=== PATIENT | male | born 1995 | race Caucasian/White ===

== ENCOUNTER 2022-12-06 18:15 | Emergency (ER) | payer SELFPAY ==
[~2022-12-06] VITALS: Ht 190.5 cm; Wt 90.7 kg
[~2022-12-06 18:15] MED LIST: ADDERALL 10 MG10 MG
[2022-12-06] MEDS ORDERED: DOXYCYCLINE HYCLATE TABLET 100 MG TAB PO ONE (18:30)
[2022-12-06] MEDS ORDERED: DOXYCYCLINE HY100 MG PO (18:57)
== END 2022-12-06 19:01 | disposition home or self-care (01) ==
LOC: ER 18:26
DX: L01.00 Impetigo, unspecified (principal)
CPT/HCPCS: 99282